=== PATIENT | female | born 2000 | race Caucasian/White ===

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

== ENCOUNTER 2022-05-05 16:50 | Emergency (ER) | payer OTHER ==
[~2022-05-05] VITALS: Ht 162.6 cm; Wt 61.7 kg
[2022-05-05] MEDS ORDERED: SPRINTEC 28 DA1 EACH PO (17:57)
== END 2022-05-05 22:22 | disposition home or self-care (01) ==
LOC: ER 16:50
DX: U07.1 COVID-19 (principal); A49.3 Mycoplasma infection, unspecified site